=== PATIENT | female | born 1960 | race Caucasian/White ===

== ENCOUNTER 2016-05-08 10:12 | Emergency (ER) | payer SELFPAY ==
[~2016-05-08] VITALS: Ht 165.1 cm; Wt 43.5 kg
[~2016-05-08 10:12] MED LIST: COUGH & COLD S237 ML PO; MUCINEX600 MG PO; NOHOMEMEDS; PREDNISONE20 MG PO; VENTOLIN HFA18 GM IH; ZITHROMAX Z-PA250 MG PO
[2016-05-08] MEDS ORDERED: PREDNISONE50 MG PO (12:22)
[2016-05-08 12:49] VITALS: BP 116/74
== END 2016-05-08 12:56 | disposition home or self-care (01) ==
LOC: RME 10:12 → EME 10:12 → RME 12:56
DX: L24.9 Irritant contact dermatitis, unspecified cause (principal)
CPT/HCPCS: 99281; 99284

== ENCOUNTER 2016-06-21 22:52 | Inpatient (IN) | payer OTHER ==
[~2016-06-21] VITALS: Ht 165.1 cm; Wt 46.3 kg
[~2016-06-21 22:52] MED LIST changes: +PREDNISONE50 MG PO
[2016-06-22 00:27] LABS: EOSINOPHIL (%) 1.5 % (0-5); EOSINOPHIL COUNT 0.1 K/uL (0-0.3); HEMATOCRIT 37.1 % (36.0-46.0); IMMATURE GRANULOCYTE (%) 0.9 % (0.0-0.7); IMMATURE GRANULOCYTE COUNT 0.8 K/uL; MCHC 34.2 G/DL (30.0-36.0); MCV 93.5 FL (83-99); MEAN PLAT.VOLUME 9.7 uM^3 (9.5-12.4); MONOCYTE (%) 9.3 % (3-12); MONOCYTE COUNT 0.9 K/uL (0-0.8); NEUTROPHIL (%) 54.5 % (45-76); PLATELET COUNT 310 K/uL (156-360); RBC DIS.WIDTH-CV 11.4 % (11.8-14.6); RBC DIS.WIDTH-SD 38.2 % (39-53); RED BLOOD COUNT 3.97 M/uL (3.80-5.20); WHITE BLOOD COUNT 9.1 K/uL (4.1-10.2)
[2016-06-22 00:34] LABS: CHLORIDE 105 mEq/L (99-109); POTASSIUM 4.1 mEq/L (3.7-5.4); SODIUM 138 mEq/L (136-147)
[2016-06-22 00:37] LABS: GLUCOSE 98 mg/dL (70-99)
[2016-06-22 00:38] LABS: ANION GAP 10 MEQ/L (2-14)
[2016-06-22 00:39] LABS: D-DIMER ELISA 0.61 mg/L FEU (< 0.57); TOTAL BILIRUBIN 0.1 mg/dL (0.0-1.0)
[2016-06-22 00:40] LABS: ALKALINE PHOSPHATASE 71 IU/L (3-129); GFR ESTIMATE (CALCULATED) > 59 mL/min/
[2016-06-22 00:41] LABS: UREA NITROGEN (BUN) 19 mg/dL (9-23)
[2016-06-22 00:47] LABS: TROP-I INTERPRETATION NEGATIVE; TROPONIN-I 0.03 ng/mL (0.0-0.30)
[2016-06-22 01:19] LABS: INFLUENZA A VIRAL ANTIGEN NEGATIVE; INFLUENZA B VIRAL ANTIGEN NEGATIVE
[2016-06-22 07:25] VITALS: BP 113/68
[2016-06-22 11:56] VITALS: BP 99/56
[2016-06-22 12:28] LABS: HEMATOCRIT 33.4 % (36.0-46.0); MCH 30.8 PG (29.0-34.0); MCHC 32.9 G/DL (30.0-36.0); MCV 93.6 FL (83-99); MEAN PLAT.VOLUME 9.8 uM^3 (9.5-12.4); PLATELET COUNT 284 K/uL (156-360); RBC DIS.WIDTH-CV 11.8 % (11.8-14.6); RED BLOOD COUNT 3.57 M/uL (3.80-5.20); WHITE BLOOD COUNT 5.6 K/uL (4.1-10.2)
[2016-06-22 12:46] LABS: ALKALINE PHOSPHATASE 52 IU/L (3-129); ANION GAP 11 MEQ/L (2-14); CHLORIDE 105 MEQ/L (99-109); GFR ESTIMATE (CALCULATED) > 59 mL/min/; GLUCOSE 117 mg/dL (70-99); SAMPLE HEMOLYSIS CHECK 0; SAMPLE ICTERIC CHECK 0; SAMPLE LIPEMIA CHECK 0; SODIUM 137 MEQ/L (136-147); TOTAL BILIRUBIN 0.3 MG/DL (0.0-1.0); UREA NITROGEN (BUN) 13 mg/dL (9-23)
[2016-06-22 15:46] VITALS: BP 104/61
[2016-06-22 20:00] VITALS: BP 112/64
[2016-06-22 23:27] VITALS: BP 111/69
[2016-06-23 03:48] VITALS: BP 116/70
[2016-06-23 08:24] VITALS: BP 103/57
[2016-06-23] MEDS ORDERED: MUCINEX600 MG PO (09:16)
[2016-06-23 11:29] VITALS: BP 101/56
[2016-06-23 16:04] VITALS: BP 102/57
[2016-06-23 20:35] VITALS: BP 109/56
[2016-06-23 23:25] VITALS: BP 107/76
[2016-06-24 03:47] VITALS: BP 120/60
[2016-06-24 08:00] VITALS: BP 107/67
[2016-06-24 11:24] VITALS: BP 112/60
[2016-06-24] MEDS ORDERED: BREO ELLIPTA I1 EACH IH (14:47)
[2016-06-24] MEDS ORDERED: SPIRIVA RESPIMAT4 GM IH (14:47)
[2016-06-24] MEDS ORDERED: PREDNISONE10 MG PO (14:47)
[2016-06-24 16:15] VITALS: BP 144/77
== END 2016-06-24 16:30 | disposition home or self-care (01) | DRG 191 ==
LOC: EME 22:52 → EDOF 06-22 05:56 → 5WEST 06-22 07:19 → 5EAST 06-22 10:30 → 5WEST 06-22 10:30 → 5EAST 06-23 22:58
PROVIDERS: Emergency Medicine; Internal Medicine
DX: J44.1 Chronic obstructive pulmonary disease with (acute) exacerbation (principal); J98.11 Atelectasis; C95.90 Leukemia, unspecified not having achieved remission; Z68.1 Body mass index [BMI] 19.9 or less, adult; J84.10 Pulmonary fibrosis, unspecified; F17.210 Nicotine dependence, cigarettes, uncomplicated; F41.9 Anxiety disorder, unspecified; R63.6 Underweight; Z82.49 Family history of ischemic heart disease and other diseases of the circulatory system; Z83.3 Family history of diabetes mellitus; Z91.19 Patient's noncompliance with other medical treatment and regimen
CPT/HCPCS: 71010; 71275; 80053; 84484; 85025; 85027; 85379; 87040; 87502; 93005; 94640; 94640 76; 94644; 94667; 94668; 94799; 99202; 99281; 99285; J1644; J1956; J2270; J2930; J7030